=== PATIENT | female | born 1990 | race Two or more races ===

== ENCOUNTER 2018-08-13 11:40 | Emergency (ER) | payer OTHER ==
[~2018-08-13] VITALS: Ht 162.6 cm; Wt 74.8 kg
[2018-08-13 12:19] LABS: Urine Bacteria FEW /hpf (None Seen); Urine Blood Negative /uL (Negative); Urine Mucus FEW (None Seen); Urine Specific Gravity 1.014 (1.001-1.035); Urine WBC 1 /hpf (0 - 5)
[2018-08-13 13:28] VITALS: BP 120/74
== END 2018-08-13 14:18 | disposition home or self-care (01) ==
LOC: ER 11:40
DX: O99.89 Other specified diseases and conditions complicating pregnancy, childbirth and the puerperium (principal); O26.892 Other specified pregnancy related conditions, second trimester; Q52.4 Other congenital malformations of vagina; Z3A.15 15 weeks gestation of pregnancy
CPT/HCPCS: 76805; 81001

== ENCOUNTER 2018-12-30 17:03 | Observation (INO) | payer OTHER ==
[2019-01-06] MEDS ORDERED: PREN-145 OR (10:52)
== END 2019-01-06 11:12 | disposition home or self-care (01) | DRG 832 ==
LOC: LDRP 01-06 09:55
PROVIDERS: ADMIT Obstetrics & Gynecology; ATTEND Obstetrics & Gynecology
DX: O23.43 Unspecified infection of urinary tract in pregnancy, third trimester (principal); N13.30 Unspecified hydronephrosis; Z87.891 Personal history of nicotine dependence; Z3A.36 36 weeks gestation of pregnancy
CPT/HCPCS: 59025; 76818; 81002; G0378

== ENCOUNTER 2018-12-30 19:30 | Observation (INO) | payer SELFPAY | END 2018-12-30 21:00 | disposition home or self-care (01) | DRG 833 | LOC: LDRP 19:30 | PROVIDERS: ADMIT Obstetrics & Gynecology; ATTEND Obstetrics & Gynecology | DX: O23.43 Unspecified infection of urinary tract in pregnancy, third trimester (principal); Z3A.35 35 weeks gestation of pregnancy | CPT/HCPCS: 59025; 76818; 81002; G0378 ==

== ENCOUNTER 2019-01-12 11:36 | Observation (INO) | payer OTHER, BC ==
[~2019-01-12 11:36] MED LIST: PREN-145 OR
== END 2019-01-12 12:45 | disposition home or self-care (01) | DRG 776 ==
LOC: LDRP 11:36
PROVIDERS: ADMIT Specialist; ATTEND Specialist
DX: O99.89 Other specified diseases and conditions complicating pregnancy, childbirth and the puerperium (principal); N13.30 Unspecified hydronephrosis; Z3A.37 37 weeks gestation of pregnancy; Z87.891 Personal history of nicotine dependence
CPT/HCPCS: 76818; G0378; 59025; 81002

== ENCOUNTER 2019-01-21 10:06 | Observation (INO) | payer OTHER, BC ==
[2019-01-21] MEDS ORDERED: fentaNYL W ROPIVACAINE 150 ML EPI SCH (12:15)
[2019-01-21] MEDS ORDERED: ePHEDrine SULFATE 50 MG/ML AMP IV ONE (12:15)
== END 2019-01-21 11:40 | disposition home or self-care (01) | DRG 776 ==
LOC: LDRP 10:06
PROVIDERS: ADMIT Obstetrics & Gynecology; ATTEND Obstetrics & Gynecology
DX: O99.89 Other specified diseases and conditions complicating pregnancy, childbirth and the puerperium (principal); N13.30 Unspecified hydronephrosis; Z87.891 Personal history of nicotine dependence; Z3A.38 38 weeks gestation of pregnancy
CPT/HCPCS: 59025; 76818; 81002; G0378